=== PATIENT | male | born 1995 | race Caucasian/White ===

== ENCOUNTER 2017-09-16 01:46 | Emergency (ER) | payer OTHER ==
[2017-09-16 01:59] VITALS: BP 134/68
--- NOTE | 2017-09-16 02:36 | ED Physician Documentation ---
PD HPI BACK PAIN - Stated complaint Stated Complaint: LOW BACK PAIN - Chief complaint Chief Complaint: Back Pain - History obtained from History obtained from: Patient - History of Present Illness Timing - onset: Chronic Timing - details: Gradual onset, Still present Location: Mid Quality: Pain Associated symptoms: No: Fever, Weakness, Numbness, Incontinent of urine, Unable to urinate Worsened by: Movement Similar symptoms before: Has not had sx before Recently seen: Not recently seen - Additional information Additional information: Patient is a 22 year old male with no significant past medical history who is presenting to the emergency department for thoracic pain. patient states that it has been going on for six weeks or so, but the last week it has been worse. patient occasionally takes tylenol but he has not taken anything for this. Patient denies any trauma. Patient denies any fever or neurological deficits. Review of Systems Constitutional: denies: Fever, Chills, Myalgias Eyes: denies: Loss of vision, Photophobia Ears: reports: Reviewed and negative Nose: reports: Reviewed and negative Throat: reports: Reviewed and negative Cardiac: denies: Chest pain / pressure Respiratory: denies: Dyspnea, Cough GI: denies: Nausea, Vomiting : reports: Reviewed and negative Skin: denies: Rash, Lesions, Abrasion (s), Laceration (s) Musculoskeletal: reports: Back pain Neurologic: denies: Generalized weakness, Focal weakness, Numbness Immunocompromised: denies: Immunocompromised PD PAST MEDICAL HISTORY - Past Medical History Past Medical History: No - Past Surgical History Past Surgical History: No - Present Medications Home Medications: Ambulatory Orders Medication Instructions Recorded Confirmed Lidocaine Patch 5% [Lidoderm Patch] 1 each TOP DAILY #10 patch 09/16/17 - Allergies Allergies/Adverse Reactions: Allergies Allergy/AdvReac Type Severity Reaction Status Date / Time No Known Drug Allergies Allergy Verified 09/16/17 01:59 - Social History Does the pt smoke?: No Smoking Status: Never smoker Does the pt drink ETOH?: No Does the pt have substance abuse?: No - Immunizations Immunizations are current?: Yes - POLST Patient has POLST: No PD ED PE NORMAL - Vitals Vital signs reviewed: Yes - General General: Alert and oriented X 3, No acute distress - HEENT HEENT: Atraumatic, PERRL - Neck Neck: Supple, no meningeal sign, No JVD - Cardiac Cardiac: RRR, No murmur - Respiratory Respiratory: No respiratory distress - Abdomen Abdomen: Soft, Non tender, Non distended - Derm Derm: Normal color, Warm and dry, No rash - Extremities Extremities: No deformity, No tenderness to palpate, No edema - Neuro Neuro: Alert and oriented X 3, No motor deficit, No sensory deficit, Normal speech - Psych Psych: Normal mood, Normal affect PD ED PE EXPANDED - Back Back: Vertebral tenderness (tenderness to palpation of mid thoracic region near t4/t5 vertebral processes) Results - Vitals Vitals: Vital Signs - 24 hr 09/16/17 01:50 Temperature 36.8 C Heart Rate 107 H Respiratory 16 Rate Blood Pressure 134/68 H O2 Saturation 97 Oxygen O2 Source Room air - Rads (name of study) thoracic spine Radiology: Final report received (no acute fracture or dislocation) PD MEDICAL DECISION MAKING - ED course Complexity details: reviewed old records, reviewed results, re-evaluated patient , considered differential, d/w patient ED course: Patient was seen and examined at bedside. Imaging was ordered. When patient returned the results were reviewed. there was no acute fracture or dislocation. Patient was treated with a toradol and a lidoderm patch. patient required no further work up and was stable for discharge with outpatient follow up. Departure - Departure Disposition: 01 Home, Self Care Clinical Impression: Back pain Condition: Good Instructions: ED Neck Back Pain General Follow-Up: Moo Browning ARNP [Primary Care Provider] - Within 1 week Prescriptions: Lidocaine Patch 5% [Lidoderm Patch] 1 each TOP DAILY #10 patch Comments: Your diagnostics today were within normal limits. there was no acute fracture or dislocation. It is difficult to say what exactly is causing your pain. you should try motrin, tylenol, ice, heat and the lidoderm patches. If your pain persists you should follow up with your pmd for possible MRI. You may return to the emergency department at any time for new, worsening or uncontrollable symptoms.
[2017-09-16] MEDS ORDERED: KETOROLAC 60 MG/2 ML VIAL IM STA (02:44)
[2017-09-16] MEDS ORDERED: KETOROLAC 60 MG/2 ML VIAL ONE (02:51)
--- NOTE | 2017-09-16 03:08 | XRAY Preliminary Report ---
Exam: XR THORACIC SPINE 2 VIEW IMPRESSION: Normal thoracic spine radiography. [facility] SITE ID: [id number]
--- NOTE | 2017-09-16 03:11 | XRAY Report ---
EXAM: THORACIC SPINE RADIOGRAPHY EXAM DATE: 09/16/2017 02:36 AM. CLINICAL HISTORY: No vertebral tenderness, worse with flexion. Mid thoracic spine pain for one week. COMPARISON: None. TECHNIQUE: 2 views. FINDINGS: Alignment: Normal. No spondylolisthesis or scoliosis. Bones: No fractures or bone lesions. Disks: Normal. Disk heights are maintained. Soft Tissues: Normal. The visualized lungs and cardiomediastinal silhouette are normal. IMPRESSION: Normal thoracic spine radiography. [facility] Referring Provider Line: [phone] SITE ID: [id number]
[2017-09-16] MEDS ORDERED: LIDOCAINE PATCH 5% TOP ONE (03:30)
[2017-09-16] MEDS ORDERED: LIDOCAINE PATCH 5% TOP SCH (04:00)
== END 2017-09-16 03:45 | disposition home or self-care (01) ==
LOC: ED 01:46
DX: M54.6 Pain in thoracic spine (principal)
CPT/HCPCS: 72070; 96372; 99283; 99284; A9270

== ENCOUNTER 2017-12-26 07:30 | Outpatient (CLI) | payer OTHER ==
--- NOTE | 2017-12-26 14:51 | MRI Report ---
EXAM: MRI THORACIC SPINE WITHOUT CONTRAST EXAM DATE: 12/26/2017 08:26 AM. CLINICAL HISTORY: 7-8 months history of lower thoracic back pain, no trauma. COMPARISONS: None. TECHNIQUE: Multiplanar, multisequence T1-weighted and fluid-sensitive sequences of the thoracic spine from C7 to L1 without contrast. Other: None. FINDINGS: Spinal Cord: No signal abnormality in the visualized spinal cord. Alignment: No scoliosis or spondylolisthesis. Bone Marrow: No gross fractures or bone lesion. No bone marrow edema. Disk Levels/Facets: C7-T1: Unremarkable. T1-T2: Unremarkable. T2-T3: Unremarkable. T3-T4: Unremarkable. T4-T5: Unremarkable. T5-T6: Unremarkable. T6-T7: Unremarkable. T7-T8: Unremarkable. T8-T9: Unremarkable. T9-T10: Unremarkable. T10-T11: Unremarkable. T11-T12: Unremarkable. T12-L1: Unremarkable. Musculature: Normal. No edema or fatty atrophy. Other: The visualized lungs, mediastinum, and abdominal cavity are unremarkable. IMPRESSION: 1. Bony structures appear normal. No fracture, marrow edema or focal bony lesion. 2. Thoracic cord and canal appear normal. 3. No disk herniation. No spinal or foraminal stenosis. 4. Paraspinous soft tissues appear normal. [facility] Referring Provider Line: [phone] SITE ID: [id number]
== END 2017-12-26 07:31 | disposition home or self-care (01) ==
LOC: DI 07:30
PROVIDERS: ATTEND Registered Nurse Diabetes Educator
DX: M54.6 Pain in thoracic spine (principal)
CPT/HCPCS: 72146